=== PATIENT | female | born 1960 | race Caucasian/White ===

== ENCOUNTER 2016-09-17 19:34 | Emergency (ER) | payer SELFPAY ==
--- NOTE | 2016-09-17 22:23 | ED.PDOC ---
History of Present Illness - General Chief Complaint: Behavioral / Psych Stated Complaint: Hallucinations Time Seen by Provider: 09/17/16 19:43 Source: patient Exam Limitations: no limitations - History of Present Illness Initial Comments: the patient is a 56-year-old female presenting to the emergency room on recommendations for her psychiatric care providers. There appears to be some concern of lithium toxicity with this patient. She was placed on lithium about a month ago in order to get control of hallucinations. She reports that she does not think that the medication has helped any. She was sent up here apparently because she was acting a little bit drowsy. She reports over the last few days she has had some mild nausea. She does report drinking a lot of water and urinating a lot but thinks that she has been doing that well before the lithium was started. She has been getting out of the heat on a semi-daily basis. She was informed before she even checked again today that we do not have a same day turnaround on her lithium levelsand she does understand that. Timing/Duration: 1 week Severity: mild Improving Factors: nothing Worsening Factors: nothing Associated Symptoms: loss of appetite, malaise Allergies/Adverse Reactions: Allergies Erythromycin Allergy (Verified 09/17/16 20:27) Sulfa Antibiotics Allergy (Verified 09/17/16 20:27) Home Medications: Ambulatory Orders Fluoxetine HCl [PROzac] 60 mg PO DAILY 09/17/16 Levothyroxine Sodium [Synthroid] 0.025 mg PO 0700 09/17/16 [place] Carbonate 600 mg PO BID 09/17/16 Trazodone HCl 200 mg PO BEDTIME 09/17/16 Zolpidem Tartrate [Ambien] 5 mg PO BEDTIME 09/17/16 Review of Systems - Review of Systems Constitutional: States: malaise EENTM: States: no symptoms reported Respiratory: States: no symptoms reported Cardiology: States: no symptoms reported Gastrointestinal/Abdominal: States: nausea - mild Genitourinary: States: frequency - long-standing Musculoskeletal: States: no symptoms reported Skin: States: no symptoms reported Neurological: States: anxiety, depressed Endocrine: States: increased thirst, increased urine - for the last 2 months Hematologic/Lymphatic: States: no symptoms reported All other Systems: No Change from Baseline Past Medical History (General) - Patient Medical History Hx Seizures: No Hx Stroke: No Hx Dementia: No Hx Asthma: No Hx of COPD: No Hx Cardiac Disorders: No Hx Congestive Heart Failure: No Hx Pacemaker: No Hx Hypertension: No Hx Thyroid Disease: Yes - Hypothyroid Hx Diabetes: No Hx Gastroesophageal Reflux: No Hx Renal Disease: No Hx Cancer: No Hx of HIV: No Hx Hepatitis C: No Hx MRSA: No Surgical History: appendectomy, cholecystectomy - Vaccination History Hx Tetanus, Diphtheria Vaccination: Yes Hx Influenza Vaccination: No Hx Pneumococcal Vaccination: No Immunizations Up to Date: Yes - Social History Hx Tobacco Use: No Hx Alcohol Use: No Hx Substance Use: No Hx Substance Use Treatment: No Hx Depression: Yes Family Medical History - Family History Father Living Status: Cause of : Alzheimers Hx Family Congestive Heart Failure: Yes Hx Family Hypertension: Yes Hx Cardiac Disease: Yes - [place] Physical Exam - Physical Exam General Appearance: Alert, Comfortable, No apparent distress Eye Exam: bilateral normal Ears, Nose, Throat: hearing grossly normal, normal ENT inspection, normal pharynx Neck: non-tender, full range of motion, supple Respiratory: chest non-tender, lungs clear, normal breath sounds, no respiratory distress, no accessory muscle use Cardiovascular/Chest: normal peripheral pulses, regular rate, rhythm, no edema Peripheral Pulses: radial,right: 2+, radial,left: 2+, dorsalis pedis,right: 2+, dorsalis pedis,left: 2+ Gastrointestinal/Abdominal: normal bowel sounds, non tender, soft Rectal Exam: deferred Back Exam: normal inspection, no CVA tenderness, no vertebral tenderness Extremity: normal range of motion, non-tender, normal inspection, no pedal edema , normal capillary refill 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 A lithium level has been sent. The turnaround time is around 48 hours and the patient does understand that. I see no new true telltale signs or symptoms of lithium toxicity with this patient at this time. Laboratory work otherwise looks good. She needs to increase her fluid intake. She needs to check back in 24-48 hours for her lithium level. This level should be a true trough. She does need to keep follow-up with psychiatry as her hallucinations are definitely not controlled. The patient has contracted for safety. She does seem to know the difference between reality and her hallucinations. ER warnings were given. - Results/Orders Results/Orders: Laboratory Tests 09/17/16 09/17/16 09/17/16 20:51 20:51 20:51 WBC 10.4 RBC 4.53 Hgb 13.1 Hct 40.0 MCV 88.4 MCH 28.9 MCHC 32.7 L RDW 14.9 H Plt Count 343 MPV 9.1 Absolute Neuts (auto) 7.70 H Absolute Lymphs (auto) 1.70 Absolute Monos (auto) 0.70 Absolute Eos (auto) 0.20 Absolute Basos (auto) 0.10 Neutrophils % 73.5 Lymphocytes % 16.7 L Monocytes % 6.6 Eosinophils % 2.1 Basophils % 1.1 Sodium 140 Potassium 3.9 Chloride 105 Carbon Dioxide 25 Anion Gap 13.9 BUN 13 Creatinine 0.74 BUN/Creatinine Ratio 17.6 Random Glucose 94 Serum Osmolality 279.3 Calcium 9.5 Magnesium 2.1 Total Bilirubin 0.5 AST 25 ALT 32 Alkaline Phosphatase 69 Serum Total Protein 7.0 Albumin 4.3 Globulin 2.7 Albumin/Globulin Ratio 1.6 TSH 5.04 Free T4 0.84 Urine Color Urine Appearance Urine pH Ur Specific [place] Urine Protein Urine Glucose (UA) Urine Ketones Urine Blood Urine Nitrite Urine Bilirubin Urine Urobilinogen Ur Leukocyte Esterase Urine RBC Urine WBC Ur Epithelial Cells Urine Bacteria Urine Mucus 09/17/16 22:05 WBC RBC Hgb Hct MCV MCH MCHC RDW Plt Count MPV Absolute Neuts (auto) Absolute Lymphs (auto) Absolute Monos (auto) Absolute Eos (auto) Absolute Basos (auto) Neutrophils % Lymphocytes % Monocytes % Eosinophils % Basophils % Sodium Potassium Chloride Carbon Dioxide Anion Gap BUN Creatinine BUN/Creatinine Ratio Random Glucose Serum Osmolality Calcium Magnesium Total Bilirubin AST ALT Alkaline Phosphatase Serum Total Protein Albumin Globulin Albumin/Globulin Ratio TSH Free T4 Urine Color Yellow Urine Appearance Clear Urine pH 6.5 Ur Specific [place] 1.025 Urine Protein Negative Urine Glucose (UA) Negative Urine Ketones Negative Urine Blood Negative Urine Nitrite Negative Urine Bilirubin Negative Urine Urobilinogen 0.2 Ur Leukocyte Esterase Trace H Urine RBC 0 Urine WBC 5-10 H Ur Epithelial Cells 3-5 Urine Bacteria Rare Urine Mucus Trace lithium level is still pending. Departure - Departure Clinical Impression: Encounter for medication monitoring Disposition: Discharge to Home or Self Care Condition: Fair Departure Forms: ED Discharge - Pt. Copy, Patient Portal Self Enrollment Instructions: DI for Bipolar Disorder Diet: regular diet Activity: increase activity as tolerated Referrals: Laith Bocanegra MD [Primary Care Provider] - 1-2 Weeks Home Medications: Ambulatory Orders Fluoxetine HCl [PROzac] 60 mg PO DAILY 09/17/16 Levothyroxine Sodium [Synthroid] 0.025 mg PO 0700 09/17/16 [place] Carbonate 600 mg PO BID 09/17/16 Trazodone HCl 200 mg PO BEDTIME 09/17/16 Zolpidem Tartrate [Ambien] 5 mg PO BEDTIME 09/17/16 Additional Instructions: the patient is a 56-year-old female sent to the emergency room secondary to some concern for possible lithium toxicity. A lithium level has been sent. The turnaround time is around 48 hours and the patient does understand that. I see no new true telltale signs or symptoms of lithium toxicity with this patient at this time. Laboratory work otherwise looks good. She needs to increase her fluid intake. She needs to check back in 24-48 hours for her lithium level. This level should be a true trough. She does need to keep follow-up with psychiatry as her hallucinations are definitely not controlled. The patient has contracted for safety. She does seem to know the difference between reality and her hallucinations. ER warnings were given.
[2016-09-17 23:07] VITALS: BP 122/87; TEMP 98.2; O2SAT 96
== END 2016-09-17 23:08 | disposition home or self-care (01) ==
LOC: ER 19:34
DX: Z51.81 Encounter for therapeutic drug level monitoring (principal); R44.3 Hallucinations, unspecified; F32.9 Major depressive disorder, single episode, unspecified; E03.9 Hypothyroidism, unspecified; Z88.2 Allergy status to sulfonamides; Z88.3 Allergy status to other anti-infective agents; Z79.899 Other long term (current) drug therapy

== ENCOUNTER → 2018-12-20 | Outpatient (CLI) | payer OTHER | LOC: LAB.O 09:35 | PROVIDERS: ATTEND Nurse Practitioner Psychiatric/Mental Health | DX: F31.2 Bipolar disorder, current episode manic severe with psychotic features (principal); Z79.899 Other long term (current) drug therapy ==